=== PATIENT | male | born 1950 | race Caucasian/White ===

== ENCOUNTER 2017-03-11 10:06 | Inpatient (IN) ==
--- NOTE | 2017-03-11 11:11 | Emergency Department Note ---
Neuro HPI - General Chief Complaint: Neuro Symptoms/Deficit Stated Complaint: Neuro deficits Time Seen by Provider: 03/11/17 10:53 Source: EMS Mode of arrival: EMS Limitations: no limitations - History of Present Illness HPI Narrative: Patient tells me that he said a difficult time holding a pen since Tuesday. He is followed twice in the last couple of days, denies any major injury, he's had a few skin slips but denies any head injury denies headache, denies chest pain he has had a cough for the last 2 weeks, denies nausea vomiting diarrhea, denies any difficulty swallowing but he has had generalized weakness and is also noticed worsening of his right leg weakness. He's been diagnosed as having bilateral lower leg weakness since last summer, history of significant alcoholism in the past he drinks very little at this time. He does take aspirin 81 mg a day, has no slight bruising on the forearms, he's also on prednisone 30 mg a day for leg weakness and it did seem to help initially when he started on prednisone a few months ago. Has been seen by Dr. Orozco, neurology, referred to [facility] for further evaluation of his leg weakness, but he has not made it to [facility] yet for that evaluation. He is right arm weakness is quite pronounced, he also has a right-sided facial droop which his noticed a couple days ago, also associated generalized weakness which I think is from right leg weakness which is worsening. He normally has been getting around with a cane but just in the last couple of days has been using a walker. No fevers reported, no abdominal pain, he denies any diarrhea or melena.He was seen and evaluated by EMS this morning, arrives via ambulance secondary to generalized weakness and right arm weakness and concerns of stroke. - Related Data Home Medications: Home Medications Medication Instructions Recorded Confirmed aspirin 81 mg tablet,delayed 81 mg PO QDAY tab 08/06/14 03/11/17 release cholecalciferol (vitamin D3) 2,000 2,000 unit PO QDAY cap 08/06/14 03/11/17 unit capsule cyanocobalamin (vit B-12) 500 mcg 1,000 mcg PO QDAY tab 08/06/14 03/11/17 tablet amlodipine 5 mg tablet 5 mg PO QDAY 03/01/17 03/11/17 Allopurinol [Zyloprim] 400 mg PO QDAY 03/11/17 03/11/17 predniSONE [Prednisone] 30 mg PO [facility] 03/11/17 03/11/17 Previous Rx's Medication Instructions Recorded tamsulosin 0.4 mg capsule 0.4 mg PO QDAY 90 Days #90 cap 05/12/16 carvedilol 25 mg tablet 25 mg PO BID #60 tab 07/28/16 levothyroxine 75 mcg tablet 75 mcg PO QDAY #90 tab 08/25/16 simvastatin 20 mg tablet 20 mg PO QPM 90 Days #90 tab 08/25/16 trazodone 100 mg tablet 100 mg PO QHS PRN #90 tab 10/26/16 chlorthalidone 25 mg tablet 25 mg PO QDAY #30 tab 12/13/16 folic acid 1 mg tablet 1 mg PO QDAY 90 Days #90 tab 02/02/17 gabapentin 300 mg capsule 300 mg PO TID #90 cap 02/03/17 Allergies/Adverse Reactions: Allergies Allergy/AdvReac Type Severity Reaction Status Date / Time lisinopril AdvReac Severe Other Verified 03/11/17 10:11 Review of Systems All systems ED: reviewed and negative except as stated. Past Medical History - Past Medical History Source: nursing notes reviewed Medical history: Reports: liver disease, renal disease, thyroid disease, other ( history of alcoholism, history of neuropathy) Psychiatric history: Reports: no psych history Surgical history ED: Reports: knee replacement, orthopedic, other Family history: Reports: no significant family history - Social History smoking status: Former smoker Alcohol use: Reports: Occasionally, Heavy Drug use: Reports: none Physical Exam Limitations: no limitations General appearance: alert Head: atraumatic, normocephalic Eye: Present: normal appearance, PERRL, EOMI. Absent: conjunctival injection, nystagmus ENT: normal exam, normal oropharynx, mucous membranes moist, TM's normal bilaterally, normal external ear exam Neck: Present: normal inspection, full ROM, trachea midline. Absent: tenderness , meningismus, lymphadenopathy, thyromegaly Chest: Present: normal inspection, symmetric chest wall rise. Absent: tenderness Respiratory: Present: normal lung sounds bilaterally. Absent: respiratory distress, wheezes Cardiovascular: Present: regular rate, normal rhythm, normal heart sounds Abdominal: Present: soft. Absent: distention, tenderness Extremities: Present: normal inspection, full ROM, other (Right leg weaker than the left side which she states is chronic,, mainly deficit and extension of the right knee also weaker right quadriceps). Absent: tenderness Back: Present: normal inspection. Absent: CVA tenderness (R), CVA tenderness (L ) Neurological: Present: alert, oriented X3, motor sensory deficit, other ( weakness of the right arm, right-sided facial droop, he can barely lift his right arm against gravity, diminished sensation of the right forearm. Internal Wholesaler strength is weak.) Psychiatric: Present: normal affect Skin: Present: warm, dry, intact, other (few skin slips on his left arm) Course - Reevaluation(s) Reevaluation #1: Patient was seen and evaluated in the department, CT scan showing subacute stroke, left hemispheric which responds to his deficit on the right side. No acute hemorrhage seen, he is still taking aspirin, he has weakness associated with his stroke and still needs further stroke workup. Plan is admit to hospital this point, the hospitalist was paged however the call forwarding went to Dr. Pham. We are still trying to get a hold of the hospitalist at this point and the admission is pending. Vital Signs Temperature 97.7 F 03/11/17 10:07 Pulse Rate 85 03/11/17 10:07 Respiratory Rate 14 03/11/17 10:07 Blood Pressure 148/102 03/11/17 10:07 Pulse Oximetry (%) 95 03/11/17 10:07 Temperature 97.7 F 03/11/17 10:07 Pulse Rate 77 03/11/17 12:26 Respiratory Rate 16 03/11/17 12:26 Blood Pressure 150/96 03/11/17 12:26 Pulse Oximetry (%) 99 03/11/17 12:26 Neuro Symptoms/Deficit - MDM Narrative Medical decision making narrative: impression is subacute stroke With resultant right-sided weakness.discussed with our hospital and he does qualify for admission. - Lab Data Result diagrams: 03/11/17 10:17 03/11/17 11:32 Lab Results 03/11/17 03/11/17 03/11/17 Range/Units 10:17 10:17 11:29 WBC 5.8 (4.5-11.0) K/mcL RBC 4.03 L (4.50-5.90) M/mcL Hgb 13.2 L (13.5-16.5) g/dL Hct 38.0 L (41.0-55.0) % POC Hct (41.0-55.0) % MCV 94.3 (80.0-100.0) fL MCH 32.8 (26.0-34.0) pg MCHC 34.8 (31.0-36.0) g/dL RDW 14.7 H (11.5-14.5) % Plt Count 291 (140-440) K/mcL MPV 7.2 L (7.4-10.4) fL Gran % 85.6 H (38.0-78.0) % Lymph % (Auto) 8.2 L (15.5-49.0) % Murray % (Auto) 5.5 (1.0-12.0) % Eos % (Auto) 0.4 (0.0-7.0) % Baso % (Auto) 0.3 (0.0-2.0) % Gran # 5.0 (1.8-8.0) K/mcL Lymph # (Auto) 0.5 L (1.5-4.8) K/mcL Murray # (Auto) 0.3 (0.1-0.9) K/mcL Eos # (Auto) 0 (0.0-0.7) K/mcL Baso # (Auto) 0 (0.0-0.3) K/mcL POC PT 14.0 (11.9-14.5) sec POC INR 1.2 (0.9-1.2) APTT 25 (20-37) sec POC Sodium (133-145) mmol/L Sodium (133-145) mmol/L POC Potassium (3.3-5.1) mmol/L Potassium (3.3-5.1) mmol/L POC Chloride (96-108) mmol/L Chloride (96-108) mmol/L Carbon Dioxide (22-30) mmol/L POC Total CO2 (22-30) mmol/L Anion Gap (8-16) POC BUN (8-23) mg/dl BUN (8-23) mg/dl Creatinine (0.7-1.2) mg/dl POC Creatinine (0.7-1.2) mg/dl GFR Calculation Glucose (70-105) mg/dL POC Glucose (70-105) mg/dL Calcium (8.6-10.4) mg/dl POC WB Ioniz Calcium (1.16-1.32) mmol/L Total Bilirubin (0.0-1.0) mg/dL AST (0-37) U/l ALT (0-40) U/l Alkaline Phosphatase (39-117) U/L Troponin T < 0.01 (0-0.03) ng/ml Total Protein (5.9-8.4) gm/dL Albumin (3.2-5.2) gm/dL Globulin (2.2-3.7) gm/dL Albumin/Globulin Ratio (1.0-2.3) 03/11/17 Range/Units 11:32 WBC (4.5-11.0) K/mcL RBC (4.50-5.90) M/mcL Hgb (13.5-16.5) g/dL Hct (41.0-55.0) % POC Hct 37.0 L (41.0-55.0) % MCV (80.0-100.0) fL MCH (26.0-34.0) pg MCHC (31.0-36.0) g/dL RDW (11.5-14.5) % Plt Count (140-440) K/mcL MPV (7.4-10.4) fL Gran % (38.0-78.0) % Lymph % (Auto) (15.5-49.0) % Murray % (Auto) (1.0-12.0) % Eos % (Auto) (0.0-7.0) % Baso % (Auto) (0.0-2.0) % Gran # (1.8-8.0) K/mcL Lymph # (Auto) (1.5-4.8) K/mcL Murray # (Auto) (0.1-0.9) K/mcL Eos # (Auto) (0.0-0.7) K/mcL Baso # (Auto) (0.0-0.3) K/mcL POC PT (11.9-14.5) sec POC INR (0.9-1.2) APTT (20-37) sec POC Sodium 134 (133-145) mmol/L Sodium 135 (133-145) mmol/L POC Potassium 3.5 (3.3-5.1) mmol/L Potassium 3.3 (3.3-5.1) mmol/L POC Chloride 98 (96-108) mmol/L Chloride 93 L (96-108) mmol/L Carbon Dioxide 27 (22-30) mmol/L POC Total CO2 25 (22-30) mmol/L Anion Gap 15.0 (8-16) POC BUN 23 (8-23) mg/dl BUN 22 (8-23) mg/dl Creatinine 1.0 (0.7-1.2) mg/dl POC Creatinine 0.9 (0.7-1.2) mg/dl GFR Calculation 78 Glucose 127 H (70-105) mg/dL POC Glucose 121 H (70-105) mg/dL Calcium 9.6 (8.6-10.4) mg/dl POC WB Ioniz Calcium 1.05 L (1.16-1.32) mmol/L Total Bilirubin 0.6 (0.0-1.0) mg/dL AST 10 (0-37) U/l ALT 10 (0-40) U/l Alkaline Phosphatase 52 (39-117) U/L Troponin T (0-0.03) ng/ml Total Protein 7.0 (5.9-8.4) gm/dL Albumin 4.1 (3.2-5.2) gm/dL Globulin 2.9 (2.2-3.7) gm/dL Albumin/Globulin Ratio 1.4 (1.0-2.3) Disposition Pt seen by [facility]/PA only: No Clinical Impression: CVA (cerebrovascular accident) Disposition: Xfer As Inpt ([facility]) Condition: Fair Referrals: Negro Garrison DO [Primary Care Provider] -
[2017-03-11] MEDS ORDERED: LACTATED RINGERS 1,000 ML IV ONE (11:19)
[2017-03-11] MEDS ORDERED: ONDANSETRON 4 MG/2 ML VIAL IV ONE (11:19)
[2017-03-11 11:43] LABS: Basophils # (Auto) 0 K/mcL (0.0-0.3); Basophils % (Auto) 0.3 % (0.0-2.0); Eosinophils # (Auto) 0 K/mcL (0.0-0.7); Eosinophils % (Auto) 0.4 % (0.0-7.0); Granulocytes % (Auto) 85.6 % (38.0-78.0); Lymphocytes # (Auto) 0.5 K/mcL (1.5-4.8); Lymphocytes % (Auto) 8.2 % (15.5-49.0); Mean Cell Volume 94.3 fL (80.0-100.0); Mean Corpuscular HGB Conc 34.8 g/dL (31.0-36.0); Mean Corpuscular Hemoglobin 32.8 pg (26.0-34.0); Monocytes # (Auto) 0.3 K/mcL (0.1-0.9); Monocytes % (Auto) 5.5 % (1.0-12.0); Platelet Count 291 K/mcL (140-440); RBC 4.03 M/mcL (4.50-5.90); Red Cell Distribution Width 14.7 % (11.5-14.5)
[2017-03-11 12:02] LABS: ALT/SGPT 10 U/l (0-40); Albumin 4.1 gm/dL (3.2-5.2); Albumin/Globulin Ratio 1.4 (1.0-2.3); Alkaline Phosphatase 52 U/L (39-117); Blood Urea Nitrogen 22 mg/dl (8-23)
--- NOTE | 2017-03-11 12:28 | Cat Scan Report ---
CLINICAL INFORMATION: Possible stroke COMPARISON: 08/26/2016 TECHNIQUE: Axial noncontrast-enhanced images through the brain. FINDINGS: No acute intracranial hemorrhage. No subdural hemorrhage. No subarachnoid hemorrhage. No intra-axial hematoma. There is low density in the left frontal lobe. This is predominantly white matter. This is a new finding since previous examination. No significant mass effect. Appearance is consistent with infarction. This may be acute to subacute. MRI scan recommended for further evaluation. Cerebral hemispheres are otherwise negative. There is low density in the left basal ganglion and sternal capsule. Appearance is consistent with nonhemorrhagic infarction, also acute to subacute. Brainstem and cerebellum are negative. No extra-axial, intracranial abnormalities. Basilar cisterns are normal. No hyperdense middle cerebral artery sign. No calvarial lesions. No fracture. No lytic lesion. IMPRESSION: 1. No acute intracranial hemorrhage. 2. Low density abnormalities in left frontal lobe and left basal ganglion. Appearance is consistent with nonhemorrhagic infarction and is probably acute to subacute. The exam was performed using radiation dose optimization techniques including, but not limited to, automated exposure control, adjustment of the mA and/or kV according to patient size and use of iterative reconstruction technique. Interpreted and Authenticated by: Negro Acuña 03/11/17
[2017-03-11] MEDS ORDERED: SIMVASTATIN 40 MG TABLET PO ONE (13:26)
--- NOTE | 2017-03-11 13:38 | XRay Report ---
INDICATION: Cough. Dyspnea. TECHNIQUE: AP chest x-ray,semierect portable COMPARISON: 11/28/2014, 05/30/2014 FINDINGS:No focal pulmonary parenchymal infiltrate or mass. Heart size and vascularity are normal. Randi and mediastinum are negative. No acute abnormality. IMPRESSION: No parenchymal consolidation. No acute abnormality. Interpreted and Authenticated by: Negro Acuña 03/11/17
[2017-03-11] MEDS ORDERED: ACETAMINOPHEN 325 MG TABLET PO PRN (14:55)
[2017-03-11] MEDS ORDERED: NALOXONE HCL 0.4 MG/ML VIAL IV PRN (14:55)
[2017-03-11] MEDS ORDERED: ONDANSETRON 4 MG/2 ML VIAL IV PRN (14:55)
[2017-03-11] MEDS ORDERED: IPRATROPIUM/ALBUTEROL 3 ML AMPUL.NEB NEB PRN (14:55)
[2017-03-11] MEDS ORDERED: oxyCODONE/APAP 5/325MG TABLET PO PRN (14:55)
[2017-03-11] MEDS ORDERED: POTASSIUM CHLORIDE 20 MEQ PACKET PO ONE (15:04)
--- NOTE | 2017-03-11 15:12 | Internal Med History&Physical ---
Medical - H&P: HPI Patient information: Note initiated : 03/11/17 at 3:05 pm Service Date, if different from initiated Date: [] Patient: Harley Bashir a 66 y/o M admitted on 03/11/17 for Neuro deficits. Chief Complaint: [] History of present illness: Mr. Bashir is a 66 year old Male with h/o ckd, MUGS, Polyneuropathy, h/o heavy alcohol use in the past, presents to the ER today with weakness and facial deviation on the right side since tuesday this week. The patient notes that since last summer he has been progressively getting weak , the patient notes however that since this tuesday he has been noticing increased weakness in the right side, he needs his walker more and has had increased falls. His also noticed some slurring of speech and deviation on the left side of the face. The patient was therefore brought to the ER for further evaluation. 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 The patient denies any chest pain, dizzyness, he denies any difficulty swallowing, no issues with cough, shortness of breath, no nausea or vomiting. he does admit to having a poor appetite (lost 50 Lbs last year? ) . The patient is supposed to see a specialist in neuropathy in [place], but is not able to see him till may this year, Not sure if a nerve biopsy has been performed. The patient in the ER had normal vitals, Head CT shows new cva o n the left side , acute to sub acute. The patient is being admitted to the hospital for further workup and treatment. He is already taking an ASA 81 daily. All systems: reviewed and no additional remarkable complaints except as stated ( as per HPI) Medical - H&P: PMH Medical history: Medical History (Last Reviewed 02/22/17 @ 13:27 by Yulisa Pedraza MD) CVA (cerebrovascular accident) (Acute) Unsteady gait (Chronic) BPPV (benign paroxysmal positional vertigo) (Chronic) Pedal edema (Acute) Unilateral primary osteoarthritis, left knee (Chronic) Chronic pain (Chronic) Renovascular hypertension (Chronic) Hypomagnesemia (Chronic) Vitamin D deficiency (Chronic) Tinea versicolor (Inactive) Rheumatoid arthritis (Chronic) Rash (Chronic) Polyarthropathy or polyarthritis of multiple sites (Chronic) Osteoarthritis (Chronic) Obesity (Chronic) Lymphadenopathy (Chronic) Kidney lesion (Chronic) Kidney cysts (Chronic) Insomnia (Chronic) Gammopathy, monoclonal (Chronic) Hypothyroidism (Chronic) Hypertension, essential (Chronic) Hyperlipidemia (Chronic) Hammer toe (Inactive) Gout (Chronic) Folic acid deficiency (Chronic) Edema (Chronic) Degeneration of intervertebral disc (Chronic) BPH (benign prostatic hypertrophy) (Chronic) Back pain (Chronic) Anemia (Chronic) Alcoholism (Chronic) Acidosis (Chronic) Dehydration (Resolved) Acute kidney failure (Inactive) Amputation of toe, right, traumatic (Inactive) Pneumonia (Inactive) Surgical history: Past Surgical History (Last Reviewed 02/22/17 @ 13:27 by Yulisa Pedraza MD) History of knee replacement (Inactive) History of bone marrow biopsy (Inactive) Arthrodesis status (Inactive) History of arthroscopic knee surgery (Inactive) History of back surgery (Inactive) History of foot surgery (Inactive) Status post ligament repair (Inactive) Pertinent family history: Family History (Last Reviewed 02/22/17 @ 13:27 by Yulisa Pedraza MD) Brother Rheumatoid arthritis Malignant neoplasm of colon Malignant neoplasm of prostate Unknown Hypertension Father Myocardial Infarction Medical - H&P: Meds Home Medications Medication Instructions Recorded Confirmed Type aspirin 81 mg tablet,delayed 81 mg PO QDAY tab 08/06/14 03/11/17 History release cholecalciferol (vitamin D3) 2,000 2,000 unit PO QDAY cap 08/06/14 03/11/17 History unit capsule cyanocobalamin (vit B-12) 500 mcg 1,000 mcg PO QDAY tab 08/06/14 03/11/17 History tablet tamsulosin 0.4 mg capsule 0.4 mg PO QDAY 90 Days #90 cap 05/12/16 03/11/17 Rx carvedilol 25 mg tablet 25 mg PO BID #60 tab 07/28/16 03/11/17 Rx levothyroxine 75 mcg tablet 75 mcg PO QDAY #90 tab 08/25/16 03/11/17 Rx simvastatin 20 mg tablet 20 mg PO QPM 90 Days #90 tab 08/25/16 03/11/17 Rx trazodone 100 mg tablet 100 mg PO QHS PRN #90 tab 10/26/16 03/11/17 Rx chlorthalidone 25 mg tablet 25 mg PO QDAY #30 tab 12/13/16 03/11/17 Rx folic acid 1 mg tablet 1 mg PO QDAY 90 Days #90 tab 02/02/17 03/11/17 Rx gabapentin 300 mg capsule 300 mg PO TID #90 cap 02/03/17 03/11/17 Rx amlodipine 5 mg tablet 5 mg PO QDAY 03/01/17 03/11/17 History Allopurinol [Zyloprim] 400 mg PO QDAY 03/11/17 03/11/17 History predniSONE [Prednisone] 30 mg PO [facility] 03/11/17 03/11/17 History Allergies Allergy/AdvReac Type Severity Reaction Status Date / Time lisinopril AdvReac Severe Other Verified 03/11/17 10:11 Medical - H&P: Exam - Constitutional Vitals: Temp Pulse Resp BP Pulse Ox 97.7 F 69 15 140/91 96 03/11/17 14:50 03/11/17 14:50 03/11/17 14:50 03/11/17 14:50 03/11/17 14:50 Exam: GENERAL: The patient is a well-developed, well-nourished in no apparent distress. Is alert and oriented x3. VITAL SIGNS: Reviewed and as noted elsewhere. HEENT: Head is normocephalic and atraumatic. Extraocular muscles are intact. Pupils are equal, round, and reactive to light. Nares appeared normal. Mouth appears any without lesions. Mucous membranes are dry. NECK: Normal to inspection, Supple, No lymphadenopathy or thyromegaly. LUNGS: Air entry equal on both sides, no wheezing, crackles or rhonchi noted. No accessory muscles of respiration HEART: Regular rate and rhythm normal, S1 and S2 heard, no Gallop, S3 or Rub Noted, No Gross murmur heard. ABDOMEN: Soft, nontender, and nondistended. Positive bowel sounds. No hepatosplenomegaly was noted. EXTREMITIES: No cyanosis, clubbing, rash, lesions or edema. NEUROLOGIC: Patient has left facial weakness, UMN type. He has Upper extremity strength of 3-4 in the rue and 5 in lue, his lle is 4/5, rle is 3/5, sensation are decreased on the right side, more on the upper extremity than the lower extremity . PSYCHIATRIC: Normal affect, Normal Mood. Appropriate Behavior. SKIN: No ulceration or wounds noted, No jaundice, No rash noted. Medical - H&P: Reslt - Labs CBC & Chem 7: 03/11/17 10:17 03/11/17 11:32 Labs: Short CBC 03/11/17 Range/Units 10:17 WBC 5.8 (4.5-11.0) K/mcL Hgb 13.2 L (13.5-16.5) g/dL Hct 38.0 L (41.0-55.0) % Plt Count 291 (140-440) K/mcL BMP 03/11/17 11:32 Sodium 135 Potassium 3.3 Chloride 93 L Carbon Dioxide 27 BUN 22 Creatinine 1.0 Glucose 127 H Calcium 9.6 Cardiac Enzymes 03/11/17 Range/Units 10:17 Troponin T < 0.01 (0-0.03) ng/ml Liver Function 03/11/17 Range/Units 11:32 Total Bilirubin 0.6 (0.0-1.0) mg/dL AST 10 (0-37) U/l ALT 10 (0-40) U/l Alkaline Phosphatase 52 (39-117) U/L Albumin 4.1 (3.2-5.2) gm/dL Medical - H&P: A/P - Narrative A/P Narrative: A/P Acute CVA: Admit to hospital, monitor on tele, no arrythmia noted on eKG, will monitor for 24-48 hrs. Start on plavix, d/c asa for now. Get echo and Head and neck MRA, patient will get st/pt/ot eval and treatment for rehab. check a1c and lipid profile.Given his h/o IgM related paraprotenemia, check serum viscosity level. CKD: stable creat at 1.2, monitor Neuropathy: Idiopathic, vs related to MUGS, patient on prednisone continue same , to see specialist in [place], may benefit from a nerve biopsy, could be CIDP vs amylodosis related to his paraproteinemia. HLD: on statin, resume same, adjust dose if LDL not at goal, HTN BP stable, continue home medications at this time. gout on allopurinol, continue same dvt hep sq Diet cardiac diet, able to swallow ok at home, will get bed side eval and ST Social History - Tobacco smoking status: Former smoker - Quit Details quit date: 03/25/73 pack-years: 14 - Alcohol alcohol intake frequency: a few times a week - Substance use substance use type: does not use
[2017-03-11] MEDS: GABAPENTIN 300 MG CAPSULE PO SCH ×2 (17:16→20:48)
[2017-03-11] MEDS: DOCUSATE SODIUM 100 MG CAPSULE PO SCH (20:48)
[2017-03-11] MEDS: CARVEDILOL 12.5 MG TABLET PO SCH (20:48)
[2017-03-11] MEDS ORDERED: traZODone HCL 50 MG TABLET PO PRN (21:00)
[2017-03-11] MEDS ORDERED: SIMVASTATIN 20 MG TABLET PO SCH (21:00)
[2017-03-11] MEDS: HEPARIN 5,000 UNIT/ML VIAL SQ SCH (21:06)
[2017-03-11] MEDS: FAMOTIDINE/PF 20 MG/2 ML VIAL IV SCH (21:07)
[2017-03-11] MEDS: DEXTROSE 5%-LR W/20MEQ KCL 1,000 ML IV SCH (23:07)
[2017-03-12 05:35] LABS: Basophils # (Auto) 0 K/mcL (0.0-0.3); Basophils % (Auto) 0.4 % (0.0-2.0); Eosinophils # (Auto) 0 K/mcL (0.0-0.7); Eosinophils % (Auto) 0.6 % (0.0-7.0); Granulocytes % (Auto) 74.2 % (38.0-78.0); Lymphocytes # (Auto) 0.9 K/mcL (1.5-4.8); Lymphocytes % (Auto) 17.1 % (15.5-49.0); Mean Cell Volume 94.6 fL (80.0-100.0); Mean Corpuscular HGB Conc 34.6 g/dL (31.0-36.0); Mean Corpuscular Hemoglobin 32.8 pg (26.0-34.0); Monocytes # (Auto) 0.4 K/mcL (0.1-0.9); Monocytes % (Auto) 7.7 % (1.0-12.0); Platelet Count 241 K/mcL (140-440); RBC 3.51 M/mcL (4.50-5.90); Red Cell Distribution Width 14.9 % (11.5-14.5)
[2017-03-12 05:57] LABS: ALT/SGPT 5 U/l (0-40); Albumin 3.4 gm/dL (3.2-5.2); Albumin/Globulin Ratio 1.3 (1.0-2.3); Alkaline Phosphatase 42 U/L (39-117); Bilirubin,Direct < 0.2 mg/dL (0.0-0.3); Blood Urea Nitrogen 18 mg/dl (8-23); Gamma Glutamyl Transpeptidase 22 U/L (8-61); HDL Cholesterol 45 mg/dl (>40); LDL Cholesterol,Calculated 91 mg/dl (SEE CHART); Magnesium 1.4 mg/dL (1.6-2.5); Uric Acid 6.5 mg/dL (2.5-8.0)
[2017-03-12 06:22] LABS: Estimated Average Glucose(eAG) 114 mg/dL; Hemoglobin A1C 5.6 % HGB (4.0-6.0)
[2017-03-12] MEDS ORDERED: LEVOTHYROXINE 75 MCG TABLET PO SCH (07:30)
[2017-03-12] MEDS ORDERED: POTASSIUM CHLORIDE 40 MEQ in DEXTROSE 5% IN WATER 500 ML IV ONE (07:54)
[2017-03-12] MEDS ORDERED: MAGNESIUM SULFATE 2 GM/50 ML BAG IV ONE (07:54)
[2017-03-12] MEDS ORDERED: predniSONE 10 MG TABLET PO SCH (08:00)
[2017-03-12] MEDS ORDERED: VITAMIN D3 1,000 UNIT TABLET PO SCH (09:00)
[2017-03-12] MEDS ORDERED: CYANOCOBALAMIN (VITAMIN B-12) 500 MCG TABLET PO SCH (09:00)
[2017-03-12] MEDS ORDERED: CLOPIDOGREL 75 MG TABLET PO SCH (09:00)
[2017-03-12] MEDS ORDERED: CHLORTHALIDONE 25 MG TABLET PO SCH (09:00)
[2017-03-12] MEDS ORDERED: TAMSULOSIN 0.4 MG CAPSULE PO SCH (09:00)
[2017-03-12] MEDS ORDERED: amLODIPine 5 MG TABLET PO SCH (09:00)
[2017-03-12] MEDS ORDERED: ALLOPURINOL 100 MG TABLET PO SCH (09:00)
[2017-03-12] MEDS ORDERED: FOLIC ACID 1 MG TABLET PO SCH (09:00)
[2017-03-12] MEDS: DOCUSATE SODIUM 100 MG CAPSULE PO SCH (10:10)
[2017-03-12] MEDS: CARVEDILOL 12.5 MG TABLET PO SCH (10:10)
[2017-03-12] MEDS: GABAPENTIN 300 MG CAPSULE PO SCH ×2 (10:10→15:17)
[2017-03-12] MEDS: HEPARIN 5,000 UNIT/ML VIAL SQ SCH (10:12)
[2017-03-12] MEDS: FAMOTIDINE/PF 20 MG/2 ML VIAL IV SCH (10:12)
--- NOTE | 2017-03-12 10:40 | Internal Med Progress Note ---
Medical - PN: Subj Patient information: Note initiated : 03/12/17 at 10:38 am Service Date, if different from initiated Date: [] Patient: Harley Bashir a 66 y/o M admitted on 03/11/17 for Neuro deficits. Chief Complaint: [] Interval history: Mr. Bashir is a 66 year old Male with h/o ckd, MUGS, Polyneuropathy, h/o heavy alcohol use in the past, presents to the ER today with weakness and facial deviation on the right side since tuesday this week. The patient notes that since last summer he has been progressively getting weak , the patient notes however that since this tuesday he has been noticing increased weakness in the right side, he needs his walker more and has had increased falls. His also noticed some slurring of speech and deviation on the left side of the face. The patient was therefore brought to the ER for further evaluation. 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 The patient denies any chest pain, dizzyness, he denies any difficulty swallowing, no issues with cough, shortness of breath, no nausea or vomiting. he does admit to having a poor appetite (lost 50 Lbs last year? ) . The patient is supposed to see a specialist in neuropathy in [place], but is not able to see him till may this year, Not sure if a nerve biopsy has been performed. The patient in the ER had normal vitals, Head CT shows new cva o n the left side , acute to sub acute. The patient is being admitted to the hospital for further workup and treatment. He is already taking an ASA 81 daily. Mar 12 Patient seen examined, no acute overnight issues, patient this AM reports did not sleep well due to constant beeping, exam shows somewhat worsening of his right upper extremity weakness today, his strength is 2/5 vs 3/5 yesterday, lower extremity strength is unchanged. Plan to add MRI head to the MRA studies already ordered. BP is stable, labs are stable,pt on antiplatlet therapy. Pertinent ROS: Denies headache, dizziness Denies chest pain, palpitations Denies cough or shortness of breath Denies abdominal pain, nausea or vomiting. - Constitutional Vitals: Vital Signs Temp Pulse Resp BP Pulse Ox 98.3 F 58 L 18 152/84 98 03/12/17 08:01 03/11/17 20:01 03/12/17 08:01 03/12/17 08:01 03/12/17 08:01 Period Temp Pulse Resp BP Sys/Lara Pulse Ox Last 24 Hr 96.9 F-98.8 F 58-80 15-25 131-156/72-96 95-100 Intake and Output 03/11/17 03/12/17 03/12/17 21:59 05:59 13:59 Intake Total 500 / 500 Output Total 775 / 775 Balance 500 / 500 -775 / -775 Weight 209 lb 6.4 oz Intake & Output: Intake & Output 03/11/17 03/12/17 03/12/17 21:59 05:59 13:59 Intake Total 500 / 500 Output Total 775 / 775 Balance 500 / 500 -775 / -775 Weight 209 lb 6.4 oz Intake: IV 500 / 500 Lactated Ringers 1,000 ml @ 80 500 / 500 mls/hr IV .[id number] Rx#: [id number] Output: Void Amount 775 / 775 Exam: Constitutional; Afebrile, cooperative, alert, not in distress. Eyes- No icterus, , No periorbital swelling Ears- Ext ear normal, hearing normal to conversation. Neck- Midline trachea, supple Respiratory system: Air Entry equal on both sides, No crackles or wheezing, no rhonchi. CVS- Rate rhythm regular, S1,S2 heard, no gallop, no rub. Abdomen- Soft nontender abdomen, no organomegaly, no tenderness, no guarding or rigidity, CONSTRUCTION CODE ADMINISTRATOR- AOOx3, RUE 2/5, LUE 4/5, RLL 3-4/5, LLL 4/5 Medical - PN: Obj Da - Labs CBC & Chem 7: 03/12/17 04:00 03/12/17 04:00 Labs: Abnormal Lab Results 03/12/17 03/12/17 03/11/17 04:00 04:00 11:32 RBC 3.51 L Hgb 11.5 L Hct 33.2 L POC Hct 37.0 L RDW 14.9 H MPV 6.9 L Gran % Lymph % (Auto) Lymph # (Auto) 0.9 L Chloride 93 L Glucose 127 H POC Glucose 121 H POC WB Ioniz Calcium 1.05 L Magnesium 1.4 L Triglycerides 173 H 03/11/17 10:17 RBC 4.03 L Hgb 13.2 L Hct 38.0 L POC Hct RDW 14.7 H MPV 7.2 L Gran % 85.6 H Lymph % (Auto) 8.2 L Lymph # (Auto) 0.5 L Chloride Glucose POC Glucose POC WB Ioniz Calcium Magnesium Triglycerides Meds: Medications Acetaminophen (Tylenol) 650 mg PO Q6HP PRN PRN Reason: PAIN/FEVER > 101 Albuterol/Ipratropium (Duoneb) 3 ml NEB Q4HRT PRN PRN Reason: Shortness Of Breath Or Wheezing Allopurinol (Zyloprim) 400 mg PO QDAY [facility] Last Admin: 03/12/17 10:11 Dose: Not Given Amlodipine Besylate (Norvasc) 5 mg PO QDAY [facility] Last Admin: 03/12/17 10:10 Dose: Not Given Carvedilol (Coreg) 25 mg PO BID [facility] Last Admin: 03/12/17 10:10 Dose: Not Given Chlorthalidone (Hygroton) 25 mg PO QDAY [facility] Last Admin: 03/12/17 10:10 Dose: Not Given Clopidogrel Bisulfate (Plavix) 75 mg PO DAILY [facility] Last Admin: 03/12/17 10:10 Dose: Not Given Cyanocobalamin (Vitamin B-12) 1,000 mcg PO QDAY [facility] Last Admin: 03/12/17 10:10 Dose: Not Given Docusate Sodium (Colace) 100 mg PO BID [facility] Last Admin: 03/12/17 10:10 Dose: Not Given Famotidine (Pepcid) 20 mg IV Q12 [facility] Last Admin: 03/12/17 10:12 Dose: 20 mg Folic Acid (Folic Acid) 1 mg PO QDAY [facility] Last Admin: 03/12/17 10:10 Dose: Not Given Gabapentin (Neurontin) 300 mg PO TID [facility] Last Admin: 03/12/17 10:10 Dose: Not Given Heparin Sodium (Porcine) (Heparin) 5,000 unit SQ Q12 [facility] Last Admin: 03/12/17 10:12 Dose: 5,000 unit Potassium Cl/Dextrose/Lact Ringer's (Dextrose 5%-Lr W/20meq Kcl) 1,000 mls @ 75 mls/hr IV .[id number] [facility] Stop: 03/13/17 14:14 Last Admin: 03/11/17 23:07 Dose: 75 mls/hr Potassium Chloride 40 meq/ (Dextrose) 520 mls @ 130 mls/hr IV ONCE ONE Stop: 03/12/17 11:53 Last Admin: 03/12/17 10:06 Dose: 130 mls/hr Levothyroxine Sodium (Synthroid) 75 mcg PO ACB [facility] Last Admin: 03/12/17 10:09 Dose: Not Given Naloxone HCl (Narcan) 0.1 mg IV Q2MIN PRN PRN Reason: Opiate Reversal Ondansetron HCl (Zofran) 4 mg IV Q4HP PRN PRN Reason: Nausea And Vomiting Oxycodone/Acetaminophen (Percocet 5-325 Mg) 1 tab PO Q4HP PRN PRN Reason: PAIN LEVEL 3-6 [facility]one [facility]one) [facility] Admin: 03/12/17 10:10 Dose: Not Given Simvastatin (Zocor) 20 mg PO QPM [facility] Last Admin: 03/11/17 20:48 Dose: Not Given Tamsulosin HCl (Flomax) 0.4 mg PO QDAY [facility] Last Admin: 03/12/17 10:10 Dose: Not Given Trazodone HCl (Desyrel) 100 mg PO HSP PRN PRN Reason: Insomnia Vitamin D (Vitamin D3) 2,000 unit PO DAILY [facility] Last Admin: 03/12/17 10:11 Dose: Not Given Medical - PN: A/P - Time Spent With Patient Total time spent is greater than 50% in coordination of care (as documented) at patient's floor/unit and/or counseling patient: - Narrative A/P Narrative: A/P Acute CVA: Stroke in evolution, Monitor on tele, no arrythmia noted on eKG, on plavix, d/c asa for now. Get echo and Head and neck MRA, get MRI head in light of worsening right upper extremity weakness, patient will get st/pt/ot eval and treatment for rehab. a1c normal, LDL is 90, pt is on max dose of simvastatin. viscosity level pending. 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 HLD: on statin, resume same, on max dose, can consider high dose of crestor vs atorvastatin. HTN BP stable, continue home medications at this time. gout on allopurinol, continue same dvt hep sq Diet cardiac diet, able to swallow ok at home, await ST eval. Medical - PN: Qual - Stroke Onset of Symptoms Date: 03/08/17 Onset of Symptoms Time: 09:00 Symptom Onset Unknown: Yes - VTE Deep Vein Thrombosis/Pulmonary Embolism Present on Admission: No
[2017-03-12] MEDS ORDERED: LORazepam 2 MG/ML VIAL IV ONE ×2 (10:55→12:17)
--- NOTE | 2017-03-12 15:34 | Magnetic Resonance Report ---
CLINICAL INFORMATION: Neurologic deficits. Initial history is suggestive of infarction of several days duration. TECHNIQUE: Axial T2 FLAIR images and diffusion weighted images. Sagittal, axial, coronal postcontrast T1 weighted images. 10 mL gadolinium injected. Sedation was administered by Dr. Ledezma COMPARISON: Previous brain CT scan dated 03/11/2017 FINDINGS: Appearance is not typical of stroke. There is an enhancing mass in the white matter of the posterior left parietal lobe. This is within the centrum semiovale. There is enhancement within the left thalamus and posterior limb of the left internal capsule. Appearance is consistent with neoplasm. There is an enhancing mass within the inferior david and medulla. There may be subtle enhancement in the inferior right frontal lobe. Multiple enhancing intra-axial lesions is consistent with metastases. T2-weighted FLAIR sequence demonstrates extensive vasogenic edema associated with the lesion in the left centrum semiovale. There is mild vasogenic edema associated with the right medullary lesion. No significant restricted diffusion. No evidence for acute infarction. Susceptibility images were not obtained but there is no significant hemorrhagic abnormality. No pathologic leptomeningeal or dural enhancement. IMPRESSION: 1. Enhancing lesions centered in the left centrum semiovale and right side of the medulla 2. Associated vasogenic edema 3. Findings are consistent with metastases Interpreted and Authenticated by: Negro Acuña 03/12/17
--- NOTE | 2017-03-12 15:36 | Magnetic Resonance Report ---
CLINICAL INFORMATION: Possible stroke TECHNIQUE: Noncontrast enhanced MRA of the [place] COMPARISON: Previous CT scan dated 03/11/2017. FINDINGS: Intracranial vertebral arteries and basilar artery are normal. No stenosis. Distal cervical internal carotid arteries, petrous portions of the internal carotid arteries, cavernous segments of the internal carotid arteries, and supraclinoid segments of the internal carotid arteries are negative bilaterally. No stenosis. No occlusion. M1 segments of the middle cerebral arteries and A1 segments of the anterior cerebral arteries are negative. Incidental note is made of a so-called origin of the right posterior cerebral artery. This is a normal variant No evidence for occluded branches. No aneurysm or arteriovenous malformation. IMPRESSION: Negative MRA of the [place] Interpreted and Authenticated by: Negro Acuña 03/12/17
--- NOTE | 2017-03-12 15:40 | Magnetic Resonance Report ---
CLINICAL INFORMATION: Symptoms suggesting stroke TECHNIQUE: 10 mL gadolinium injected. Routine MRA of the neck. Sedation was provided by Dr. Ledezma COMPARISON: None. FINDINGS: Aortic arch is suboptimally imaged. The left subclavian artery and origin of left common carotid artery are not well visualized. There is motion which causes some image degradation. Common carotid arteries are otherwise negative. Internal carotid arteries are negative. No stenosis. No occlusion. Vertebral arteries are patent bilaterally. Left vertebral artery is larger than the right. No significant abnormality. IMPRESSION: 1. Limited evaluation. 2. Common carotid arteries and internal carotid arteries are within normal limits. No stenosis Interpreted and Authenticated by: Negro Acuña 03/12/17
[2017-03-12] MEDS ORDERED: DEXAMETHASONE 10 MG/ML VIAL IV ONE (16:10)
[2017-03-12] MEDS ORDERED: IOPAMIDOL 100 ML BOTTLE IJ ONE (16:44)
--- NOTE | 2017-03-12 16:59 | Cat Scan Report ---
CLINICAL INFORMATION: Findings consistent with brain metastases TECHNIQUE: 100 mL contrast material administered. Axial images of the chest, abdomen, pelvis. Sagittally and coronally reformatted images. Mid reformatted images COMPARISON: Brain MRI scan dated 03/12/2017 FINDINGS: No pulmonary parenchymal mass. No consolidation. Lungs are suboptimally evaluated due to patient breathing. Randi and mediastinum are negative. No pathologic adenopathy. No axillary adenopathy. No significant pleural effusion. No pericardial effusion. Negative liver. No focal intrahepatic abnormality. Liver contour is smooth. No evidence for cirrhosis. Gallbladder is present. No calcified gallstones. Negative pancreas. No pancreatic mass. No peripancreatic abnormality. Spleen is negative. Normal enhancement of splenic and portal veins. Negative adrenal glands. Kidneys are mildly atrophic bilaterally with thinned renal cortex. No solid mass. No hydronephrosis. There is a small left renal exophytic cyst. Urinary bladder is not distended. Negative colon. No colonic mass. There is diverticulosis. No evidence for diverticulitis. No appendicitis. No mechanical small bowel obstruction. No retroperitoneal or mesenteric lymphadenopathy. Degenerative disc disease at L4-L5 and L5-S1. No lumbar compression fractures. No lytic lesions. Sternum and ribs are negative. Pelvis is negative. Prostate is not significantly enlarged IMPRESSION: Negative postcontrast CT scan of the chest, abdomen, pelvis The exam was performed using radiation dose optimization techniques including, but not limited to, automated exposure control, adjustment of the mA and/or kV according to patient size and use of iterative reconstruction technique. COMPARISON: None. FINDINGS: IMPRESSION: Interpreted and Authenticated by: Negro Acuña 03/12/17
[2017-03-12] MEDS ORDERED: PANTOPRAZOLE 40 MG VIAL IV SCH (17:00)
[2017-03-12] MEDS ORDERED: HYDROmorphone 2 MG/ML SYRINGE IV PRN (17:16)
[2017-03-12] MEDS: DEXTROSE 5%-LR W/20MEQ KCL 1,000 ML IV SCH (17:39)
--- NOTE | 2017-03-12 18:21 | Transfer Summary ---
Transfer Discharge Sum: Prov Patient information: Note initiated : 03/12/17 at 6:19 pm Service Date, if different from initiated Date: [] Patient: Harley Bashir 66 y/o M admitted on 03/11/17 for Neuro deficits. Chief Complaint: [] Date of admission: 03/11/17 14:46 Discharge Date: 03/12/17 Primary care physician: Negro Garrison Admitting clinician: Jm Ledezma Consults: 03/11/17 13:28 Consult to Physician [CONS] Stat Comment: Consulting Provider: Jm Ledezma Reason For Exam: Physician to Consult Discharging clinician: Jm Ledezma Receiving physician/facility: Dr Harrison [facility]. Transfer Discharge Sum: Diag - Discharge Diagnosis (1) Cerebral edema Status: Acute (2) Tumor of central nervous system Status: Acute Transfer Discharge Sum: Med - Medications Active and Home Medications: Home Medications aspirin 81 mg tablet,delayed release 81 mg PO QDAY tab 08/06/14 [History Confirmed 03/11/17] cholecalciferol (vitamin D3) 2,000 unit capsule 2,000 unit PO QDAY cap [History Confirmed 03/11/17] cyanocobalamin (vit B-12) 500 mcg tablet 1,000 mcg PO QDAY tab 08/06/14 [ History Confirmed 03/11/17] tamsulosin 0.4 mg capsule 0.4 mg PO QDAY 90 Days #90 cap 05/12/16 [Rx Confirmed 03/11/17] carvedilol 25 mg tablet 25 mg PO BID #60 tab 07/28/16 [Rx Confirmed 03/11/17] levothyroxine 75 mcg tablet 75 mcg PO QDAY #90 tab 08/25/16 [Rx Confirmed ] simvastatin 20 mg tablet 20 mg PO QPM 90 Days #90 tab 08/25/16 [Rx Confirmed ] trazodone 100 mg tablet 100 mg PO QHS PRN #90 tab 10/26/16 [Rx Confirmed ] chlorthalidone 25 mg tablet 25 mg PO QDAY #30 tab 12/13/16 [Rx Confirmed ] folic acid 1 mg tablet 1 mg PO QDAY 90 Days #90 tab 02/02/17 [Rx Confirmed 03/11] gabapentin 300 mg capsule 300 mg PO TID #90 cap 02/03/17 [Rx Confirmed 03/11/17] amlodipine 5 mg tablet 5 mg PO QDAY 03/01/17 [History Confirmed 03/11/17] Allopurinol [Zyloprim] 400 mg PO QDAY 03/11/17 [History Confirmed 03/11/17] predniSONE [Prednisone] 30 mg PO QAC 03/11/17 [History Confirmed 03/11/17] Active Medications Acetaminophen (Tylenol) 650 mg PO Q6HP PRN PRN Reason: PAIN/FEVER > 101 Albuterol/Ipratropium (Duoneb) 3 ml NEB Q4HRT PRN PRN Reason: Shortness Of Breath Or Wheezing Allopurinol (Zyloprim) 400 mg PO QDAY [facility] Last Admin: 03/12/17 10:11 Dose: Not Given Amlodipine Besylate (Norvasc) 5 mg PO QDAY [facility] Last Admin: 03/12/17 10:10 Dose: Not Given Carvedilol (Coreg) 25 mg PO BID [facility] Last Admin: 03/12/17 10:10 Dose: Not Given Chlorthalidone (Hygroton) 25 mg PO QDAY [facility] Last Admin: 03/12/17 10:10 Dose: Not Given Cyanocobalamin (Vitamin B-12) 1,000 mcg PO QDAY [facility] Last Admin: 03/12/17 10:10 Dose: Not Given Dexamethasone (Decadron) 4 mg IV Q4 [facility] Docusate Sodium (Colace) 100 mg PO BID [facility] Last Admin: 03/12/17 10:10 Dose: Not Given Folic Acid (Folic Acid) 1 mg PO QDAY [facility] Last Admin: 03/12/17 10:10 Dose: Not Given Gabapentin (Neurontin) 300 mg PO TID [facility] Last Admin: 03/12/17 15:17 Dose: Not Given Heparin Sodium (Porcine) (Heparin) 5,000 unit SQ Q12 [facility] Last Admin: 03/12/17 10:12 Dose: 5,000 unit Hydromorphone HCl (Dilaudid) 0.5 mg IV Q4-6HP PRN PRN Reason: PAIN LEVEL > 6 Last Admin: 03/12/17 17:39 Dose: 0.5 mg Potassium Cl/Dextrose/Lact Ringer's (Dextrose 5%-Lr W/20meq Kcl) 1,000 mls @ 75 mls/hr IV .[id number] [facility] Stop: 03/13/17 14:14 Last Admin: 03/12/17 17:39 Dose: Not Given Levothyroxine Sodium (Synthroid) 75 mcg PO ACB [facility] Last Admin: 03/12/17 10:09 Dose: Not Given Naloxone HCl (Narcan) 0.1 mg IV Q2MIN PRN PRN Reason: Opiate Reversal Ondansetron HCl (Zofran) 4 mg IV Q4HP PRN PRN Reason: Nausea And Vomiting Oxycodone/Acetaminophen (Percocet 5-325 Mg) 1 tab PO Q4HP PRN PRN Reason: PAIN LEVEL 3-6 Pantoprazole Sodium (Protonix) 40 mg IV BIDAC [facility] Last Admin: 03/12/17 17:41 Dose: 40 mg Simvastatin (Zocor) 20 mg PO QPM [facility] Last Admin: 03/11/17 20:48 Dose: Not Given Tamsulosin HCl (Flomax) 0.4 mg PO QDAY [facility] Last Admin: 03/12/17 10:10 Dose: Not Given Trazodone HCl (Desyrel) 100 mg PO HSP PRN PRN Reason: Insomnia Vitamin D (Vitamin D3) 2,000 unit PO DAILY [facility] Last Admin: 03/12/17 10:11 Dose: Not Given Transfer Discharge Sum: Hosp Hospital course: Mr. Bashir is a 66 year old Male with h/o ckd, MUGS, Polyneuropathy, h/o heavy alcohol use in the past, presented to the ER yesterday with weakness and facial deviation on the right side since Tuesday this week. The patient notes that since last summer he has been progressively getting weak, the patient notes however that since this Tuesday he has been noticing increased weakness in the right side, he needs his walker more and has had increased falls. His also noticed some slurring of speech and deviation on the left side of the face. The patient was therefore brought to the ER for further evaluation. The patient has been diagnosed with idiopathic neuropathy by his neurologist and placed on steroids, the patient seems to have responded to this treatment with improved ambulation, his condition worsened this week. The patient denies any chest pain , dizziness, he denies any difficulty swallowing, no issues with cough, shortness of breath, no nausea or vomiting. he does admit to having a poor appetite (lost 50 Lbs last year? ) .The patient is supposed to see a specialist in neuropathy in [place], but is not able to see him till may this year. The patient in the ER had normal vitals, Head CT shows new cva o n the left side, acute to sub acute. The patient is being admitted to the hospital for further workup and treatment. He is already taking an ASA 81 daily. The patient this AM had worsening of his neurological status, his right upper extremity strength had worsened since admission, he was unable to move his right arm against gravity today, and while yesterday he could easily do that. 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 The patient underwent an Echo results is pending. CT chest abdomen and pelvis with contrast done which is negative for any primary source. The patients was started on Plavix initially with the idea that this is a CVA, however he did not get any oral medications as per records here. The patient was not seen by Speech to determine ability to safely swallow meds. His home dose of Prednisone was stopped and he was started on IV dexamethasone and IV ppi for cerebral edema. The patients case was discussed with Dr Harrison, who reviewed the MRI and graciously accepted the patient for further care. The patient condition this PM has worsened since AM, and he does not have much strength on the right side on clinical exam today. HE will be transferred to Progressive care [facility] at [facility]. Patients was at bedside and is aware of the overall poor prognosis. - Time Spent with Patient Total time spent providing and/or coordinating transfer services: Greater than 30 minutes Transfer Discharge Sum: Exam - Constitutional Vitals: Vital Signs Temp Pulse Resp BP Pulse Ox 03/12/17 14:04 98.9 F 16 152/93 98 03/12/17 10:40 139/86 03/12/17 08:01 98.3 F 18 152/84 98 03/12/17 07:40 98 03/12/17 04:01 149/87 96 03/12/17 01:01 147/82 95 03/12/17 00:44 95 03/12/17 00:01 141/74 97 03/11/17 23:01 152/86 99 03/11/17 22:01 149/84 100 03/11/17 21:14 98 03/11/17 21:01 131/72 98 03/11/17 20:01 96.9 F L 58 L 18 139/79 99 03/11/17 20:00 98 03/11/17 19:01 145/87 99 Intake and Output 03/12/17 03/12/17 03/12/17 05:59 13:59 21:59 Intake Total 50 / 50 Output Total 775 / 775 Balance -775 / -775 50 / 50 Intake: IV 50 / 50 Output: Void Amount 775 / 775 Other: Weight 209 lb 6.4 oz Patient Weight 03/13/17 05:59 Weight 209 lb 6.4 oz Additional comments: Constitutional; Afebrile, cooperative, but sleepy (had received some dilaudid for headache) . Eyes- No icterus, , No periorbital swelling Ears- Ext ear normal, hearing normal to conversation. Neck- Midline trachea, supple Respiratory system: Air Entry equal on both sides, No crackles or wheezing, no rhonchi. CVS- Rate rhythm regular, S1,S2 heard, no gallop, no rub. Abdomen- Soft nontender abdomen, no organomegaly, no tenderness, no guarding or rigidity, [employer]- AOOx3, rigth facial, absent strength on right side at discahrge. Transfer Discharge Sum: Data Procedures and tests throughout hospitalization: Pending Orders 03/11/17 Bedside Swallowing Evaluation [EVAL] Urgent 03/11/17 10:17 Viscosity Stat 03/11/17 10:27 IV Discontinue (ED) once 03/11/17 11:19 ED Peripheral IV NOW Strict NPO .ROUTINE Continuous pulse oximetry .ROUTINE 03/11/17 13:28 Consult to Physician [CONS] Stat 03/11/17 14:25 Resuscitation Status Routine 03/11/17 14:55 Case Management Referral .Routine Admit as Inpatient Routine Bedrest w/bathroom privileges .ROUTINE playground monitor CONT Condition Routine Elevate head of bed .ROUTINE IV Insertion/Management QSHIFT Intake and Output qshiftio Neurological Assessment Q4 Notify Provider .routine VTE Risk: Assessment ONCE Vital Signs Q4 Weight Monitoring QHS Acetaminophen [Tylenol] 650 mg PO Q6HP PRN Ipratropium/Albuterol [Duoneb] 3 ml NEB Q4HRT PRN Naloxone HCl [Narcan] 0.1 mg IV Q2MIN PRN Ondansetron [Zofran] 4 mg IV Q4HP PRN oxyCODONE/APAP [PERCOCET 5-325 mg] [address] PO Q4HP [address] to Adjust Diet/Supplements as Needed Routine Stroke Screening Routine Occupational Therapy Eval & Tx DAILY Physical Therapy Eval & Tx DAILY Incentive Spirometry Assess/Tx Q2HWA Nebulizer management .Routine Oxygen Order .Routine Pulse Oximetry .ROUTINE Speech Therapy Eval & Treat .Routine 03/11/17 14:56 Strict NPO .ROUTINE 03/11/17 15:00 Gabapentin [Neurontin] 300 mg PO TID 03/11/17 21:00 Carvedilol [Coreg] 25 mg PO BID Docusate Sodium [Colace] 100 mg PO BID Heparin 5,000 unit SQ Q12 Simvastatin [Zocor] 20 mg PO QPM traZODone HCL [Desyrel] 100 mg PO HSP PRN 03/11/17 22:15 Dextrose 5%-Lr W/20Meq KCl 1,000 ml IV 75 mls/hr 03/12/17 07:30 Levothyroxine [Synthroid] 75 mcg PO ACB 03/12/17 09:00 Allopurinol [Zyloprim] 400 mg PO QDAY Chlorthalidone [Hygroton] 25 mg PO QDAY Cyanocobalamin (Vitamin B-12) [Vitamin B-12] 1,000 mcg PO QDAY Folic Acid 1 mg PO QDAY Tamsulosin [Flomax] 0.4 mg PO QDAY Vitamin D3 2,000 unit PO DAILY amLODIPine [Norvasc] 5 mg PO QDAY 03/12/17 17:00 Pantoprazole [Protonix] 40 mg IV BIDAC 03/12/17 17:16 HYDROmorphone [Dilaudid] 0.5 mg IV Q4-6HP PRN 03/12/17 17:56 Yost [Indwelling Urinary Catheter] CONT 03/12/17 20:00 Dexamethasone [Decadron] 4 mg IV Q4 03/12/17 Lunch NPO Diet (NOW) 03/13/17 04:00 Complete Blood Count DAILY Inpatient Panel DAILY 03/14/17 04:00 Complete Blood Count DAILY Inpatient Panel DAILY 03/15/17 04:00 Complete Blood Count DAILY Inpatient Panel DAILY 03/16/17 04:00 Complete Blood Count DAILY Inpatient Panel DAILY 03/17/17 04:00 Complete Blood Count DAILY Inpatient Panel DAILY 03/18/17 04:00 Complete Blood Count DAILY Inpatient Panel DAILY Transfer Discharge Sum: A/P - Problem Maintenance (1) Cerebral edema Status: Acute (2) Tumor of central nervous system Status: Acute - Plan Overall status at transfer: patient is not back to baseline [facility] Quality Measure Queries - VTE Deep Vein Thrombosis/Pulmonary Embolism Present on Admission: No
[2017-03-12] MEDS ORDERED: DEXAMETHASONE 10 MG/ML VIAL IV SCH (20:00)
[2017-03-17 08:37] LABS: Viscosity 1.7 (1.5-1.9)
== END 2017-03-12 18:53 | disposition short-term general hospital (02) | DRG 80 ==
LOC: ED 10:06 → ICU 14:46
PROVIDERS: ADMIT Internal Medicine; ATTEND Internal Medicine